=== PATIENT | male | born 1935 | race Caucasian/White ===

== ENCOUNTER 2019-05-01 02:18 | Emergency (ER) | payer MEDICARE ==
[2019-05-01 03:00] LABS: Absolute Neutrophil Ct (ANC) 9.16 (1.4-6.9); BASOPHIL % 0.3 % (0.0-0.4); Basophil (Absolute #) 0.04 (0-0.4); Eosinophil % 1.6 % (0.00-5.0); Eosinophil (Absolute #) 0.21 (0-0.5); Hematocrit 44.1 % (42-50); Lymphocyte (Absolute #) 2.57 (1.0-4.6); Lymphocytes % 20.1 % (24.0-44.0); Mean Cell Volume 94.6 fl (78-100); Mean Corpuscular Hemoglobin 32.2 pg (26-32); Mean Platelet Volume 9.5 fl (6-9.5); Monocyte (Absolute #) 0.81 (0.0-1.3); Monocytes % 6.3 % (0.0-12.0); Neutrophil % 71.7 % (36.0-66.0); Platelet Count 272 K/mm3 (150-450); Red Blood Count 4.66 M/mm3 (4.1-5.6); Red Cell Distribution Width 13.2 % (11.5-14.0); White Blood Count 12.8 K/mm3 (4.0-10.5)
[2019-05-01 03:08] LABS: ALBUMIN 4.4 g/dL (3.5-5.0); ALKALINE PHOSPHATASE 86 U/L (38-126); ANION GAP 14.4 MEQ/L (5-15); BLOOD UREA NITROGEN 21 mg/dL (9-20); CHLORIDE 110 mmol/L (98-107); Calcium 9.3 mg/dL (8.4-10.2); Carbon Dioxide 21 mmol/L (22-30); Creatinine 1 1.05 mg/dL (0.66-1.25); Glucose 144 mg/dL (74-106); Potassium 3.9 mmol/L (3.5-5.1); SGOT/AST 26 U/L (17-59); SGPT/ALT 21 U/L (0-50); SODIUM 142 mmol/L (137-145); Total Protein 8.1 g/dL (6.3-8.2)
[2019-05-01] MEDS ORDERED: CITROMA 296 ML PO ONE (04:01)
[2019-05-01] MEDS ORDERED: CITROMA 296 ML ONE (04:02)
--- NOTE | 2019-05-01 04:10 | ERPHSYRPT ---
- History of Present Illness Time Seen by Provider: 05/01/19 03:00 Patient Subjective Stated Complaint: PT STATES HE HAS BEEN CONSTIPATED FOR 4 DAYS, STATES HE DOES NOT HAVE STOMACH PAIN BUT HAS NOT HAD ANY BOWEL MOVEMENT THOUGH HE HAS SAT AND TRIED TO HAVE A BM AND CANNOT. Triage Nursing Assessment: PT ALERT AND ORIENTED, STATES HE DOES NOT HAVE ANY PAIN BUT ABDOMEN IS DISTENDED. FAINT BOWEL SOUNDS HEARD IN ALL 4 QUADRANTS. Physician History: the patient is an 84-year-old male who presents with a complaint of no bowel movement for 4 days.he has had no nausea no vomiting but no stool or gas passing. He complains of severe rectal pressure. He had a similar episode about 5 years ago and was treated in hospital in the emergency room. 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 [id number] disease and had an hour prior alkalinization of is an ill and that I was about to Dr. Demarco with her in his is an in and he is in that practice and was on his diet. Vertebral artery 43 years old [address] that I and with chiropractic he is currently who is no history Luke and in in a cold, just, is and is alert and in in a and is in a and and and and and a pain in her and and and and and and and and and and and and an old and is in and is in as per the and and 80 is maybe some cardiac yeah so the cardiac and and then had a CT of the head along that it began not gotten down far enough to get enough of the neck and brainstem was going goes all the edema was on the brainstem and and then weak and Wednesday night on a very and is an and vertigo and in in an and in in a today to undergo with contrast and a and a and and and and a and who reviewed with a finger was going on for was ever trying to cut down the numbers CTs and and and and they were interested Y. irregular is 100 numbers were 25 and he I. he's not into this is a and and he is in his will and is in the reason for were note this is a postural and she comes to the ER [id number] in 24 hours later and CTs were and tells him the story that she's sits up and it started when she lays back he feels better the headache is worse when she said to and she requested a CT scan this was when CTs were only anything is changed to a she comes back to n date so she was sent here visiting she says it's like everything around the scar in the midline C. 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 every time he and and is) Allergies/Adverse Reactions: No Known Drug Allergies Allergy (Unverified 05/01/19 02:34) Home Medications: Clopidogrel Bisulfate [Clopidogrel] 75 mg PO DAILY 05/01/19 [History] Hydroxyzine HCl 25 mg [Atarax 25 mg] 25 mg PO DAILY PRN PRN 05/01/19 [ History] Isosorbide Mononitrate 30 mg [Imdur 30 MG] 30 mg PO DAILY 05/01/19 [History ] Ranitidine HCl [Zantac] 150 mg PO BID 05/01/19 [History] Hx Tetanus, Diphtheria Vaccination/Date Given: Yes Hx Influenza Vaccination/Date Given: Yes Hx Pneumococcal Vaccination/Date Given: Yes Immunizations Up to Date: Yes - Past Medical History Cardiac History: Other Other Medical History: 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,BOWEL BLOCKAGE - Past Surgical History Other Surgical History: L HIP REPLACED, CATARACTS - Social History Smoking Status: Former smoker Exposure to second hand smoke: No Drug Use: none Patient Lives Alone: No - Nursing Vital Signs Nursing Vital Signs: Initial Vital Signs Temperature 97.7 F 05/01/19 02:23 Pulse Rate 18 L 05/01/19 02:23 Respiratory Rate 18 05/01/19 02:23 Blood Pressure 187/73 05/01/19 02:23 O2 Sat by Pulse Oximetry 97 05/01/19 02:23 Pain Scale Pain Intensity 0 - Physical Exam General Appearance: mild distress, alert Eye Exam: PERRL/EOMI, eyes nml inspection Ears, Nose, Throat Exam: normal ENT inspection, pharynx normal, moist mucous membranes Neck Exam: normal inspection, non-tender, supple, full range of motion Respiratory Exam: normal breath sounds, lungs clear, No respiratory distress Cardiovascular Exam: regular rate/rhythm, normal heart sounds Gastrointestinal/Abdomen Exam: soft, normal bowel sounds, No tenderness, No mass Rectal Exam: other (a hard stool noted on digital exam) Back Exam: normal inspection, normal range of motion, No CVA tenderness, No vertebral tenderness Extremity Exam: normal inspection, normal range of motion, pelvis stable Neurologic Exam: alert, oriented x 3, cooperative, normal mood/affect, nml cerebellar function, sensation nml, No motor deficits Skin Exam: normal color, warm, dry SpO2: 97 - Course Nursing assessment & vital signs reviewed: Yes - Radiology Exams Abdomen X-ray Interpretation: Interpreted by me, Other (constipation ) Ordered Tests: Active Orders 24 hr Category Date Time Status Enema STAT Care 05/01/19 03:30 Active Enema STAT Care 05/01/19 04:43 Active KUB Stat Exams 05/01/19 Ordered CBC W DIFF Stat Lab 05/01/19 02:56 Completed CMP Stat Lab 05/01/19 02:55 Completed Medication Summary Generic Name Dose Route Start Last Admin Trade Name Freq PRN Reason Stop Dose Admin Polyethylene Glycol/Electrolytes 4,000 ml 05/01/19 14:00 05/01/19 05:44 Golytely Solution 4000 Ml PO 05/01/19 14:01 4,000 ml ONCE@1400 ONE Administration Discontinued Medications Generic Name Dose Route Start Last Admin Trade Name Freq PRN Reason Stop Dose Admin Magnesium Citrate 296 ml 05/01/19 04:01 05/01/19 04:03 Citroma 296 Ml PO 05/01/19 04:02 296 ml STAT ONE Administration Magnesium Citrate Confirm 05/01/19 04:02 Citroma 296 Ml Administered 05/01/19 04:03 Dose 296 ml .ROUTE .STK-MED ONE Polyethylene Glycol/Electrolytes Confirm 05/01/19 05:35 Golytely Solution 4000 Ml Administered 05/01/19 05:36 Dose 4,000 ml .ROUTE .STK-MED ONE Lab/Rad Data: Laboratory Result Diagrams 05/01/19 02:56 05/01/19 02:55 Laboratory Results 05/01/19 05/01/19 Range/Units 02:56 02:55 WBC 12.8 H (4.0-10.5) K/mm3 RBC 4.66 (4.1-5.6) M/mm3 Hgb 15.0 (12.5-18.0) gm/dl Hct 44.1 (42-50) % MCV 94.6 (78-100) fl MCH 32.2 H (26-32) pg MCHC 34.0 (32-36) g/dl RDW 13.2 (11.5-14.0) % Plt Count 272 (150-450) K/mm3 MPV 9.5 (6-9.5) fl Gran % 71.7 H (36.0-66.0) % Eos # (Auto) 0.21 (0-0.5) Absolute Lymphs (auto) 2.57 (1.0-4.6) Absolute Monos (auto) 0.81 (0.0-1.3) Lymphocytes % 20.1 L (24.0-44.0) % Monocytes % 6.3 (0.0-12.0) % Eosinophils % 1.6 (0.00-5.0) % Basophils % 0.3 (0.0-0.4) % Absolute Granulocytes 9.16 H (1.4-6.9) Basophils # 0.04 (0-0.4) Sodium 142 (137-145) mmol/L Potassium 3.9 (3.5-5.1) mmol/L Chloride 110 H (98-107) mmol/L Carbon Dioxide 21 L (22-30) mmol/L Anion Gap 14.4 (5-15) MEQ/L BUN 21 H (9-20) mg/dL Creatinine 1.05 (0.66-1.25) mg/dL Estimated GFR > 60.0 ML/MIN Glucose 144 H (74-106) mg/dL Calcium 9.3 (8.4-10.2) mg/dL Total Bilirubin 0.60 (0.2-1.3) mg/dL AST 26 (17-59) U/L ALT 21 (0-50) U/L Alkaline Phosphatase 86 (38-126) U/L Serum Total Protein 8.1 (6.3-8.2) g/dL Albumin 4.4 (3.5-5.0) g/dL - Progress Progress: unchanged - Departure Departure Disposition: Home Clinical Impression: Constipation Condition: Stable Critical Care Time: No Referrals: DOCTOR,NO FAMILY [Primary Care Provider] - Instructions: Fecal Impaction Additional Instructions: patient has been given 2 soap suds enemas a bottle of mag citrate and 2 L of GoLYTELY at this point he is simply waiting for those medications to work and will be discharged home.
[2019-05-01] MEDS ORDERED: Golytely Solution 4000 ML ONE (05:35)
[2019-05-01 07:18] VITALS: BP 152/88; PULSE 72; O2SAT 98
--- NOTE | 2019-05-01 09:19 | XRAY ---
Indication: Constipation 4 days. Comparison: None KUB demonstrates mild scattered colonic fecal debris without focal bowel dilatation or obstruction. Solid organs unremarkable. Osseous structures intact with osteopenia, mild/moderate degenerative changes throughout thoracolumbar spine, mild right hip degenerative arthropathy, and left total hip arthroplasty. Impression: Fecal stasis without obstruction.
[2019-05-01] MEDS ORDERED: Golytely Solution 4000 ML PO ONE (14:00)
== END 2019-05-01 07:14 | disposition home or self-care (01) ==
LOC: ED 02:18
DX: K59.00 Constipation, unspecified (principal); Z79.899 Other long term (current) drug therapy
CPT/HCPCS: 36415; 74018; 80053; 85025; 99284; A9270-GY